=== PATIENT | female | born 1995 | race Caucasian/White ===

== ENCOUNTER 2021-05-12 22:36 | Emergency (ER) | payer SELFPAY ==
--- NOTE | 2021-05-12 23:55 | EDM.PDOC ---
ED HPI GENERAL MEDICAL PROBLEM - General Chief Complaint: General Stated Complaint: POSSIBLE LIVER PROBLEM FROM ALCOHOL Time Seen by Provider: 05/12/21 23:28 Source of Information: Reports: Patient History Limitations: Reports: No Limitations - History of Present Illness INITIAL COMMENTS - FREE TEXT/NARRATIVE: Patient is a 26-year-old female who presents today for evaluation of her liver. Patient that she is drinking a lot this weekend and has a slight pain in the right upper quadrant and she dragon is ID about it and want to come get it checked out. She denies any nausea vomiting diarrhea. States still eating drinking is normal. Pain is not made worse with eating. Patient has no other complaints. - Related Data Allergies Allergy/AdvReac Type Severity Reaction Status Date / Time Sulfa (Sulfonamide Allergy Other Verified 05/12/21 23:50 Antibiotics) Home Meds: Home Meds . 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 - Past Surgical History Other GI Surgeries/Procedures: hiatal hernia Social & Family History - Tobacco Use Tobacco Use Status *Q: Never Tobacco User - Recreational Drug Use Recreational Drug Use: No ED ROS GENERAL - Review of Systems Review Of Systems: See Below Constitutional: Reports: No Symptoms HEENT: Reports: No Symptoms Respiratory: Reports: No Symptoms Cardiovascular: Reports: No Symptoms Endocrine: Reports: No Symptoms GI/Abdominal: Reports: No Symptoms : Reports: No Symptoms Musculoskeletal: Reports: No Symptoms Skin: Reports: No Symptoms Neurological: Reports: No Symptoms Psychiatric: Reports: No Symptoms Hematologic/Lymphatic: Reports: No Symptoms Immunologic: Reports: No Symptoms ED EXAM, GENERAL - Physical Exam Exam: See Below Exam Limited By: No Limitations General Appearance: Alert, WD/WN, No Apparent Distress Eye Exam: Bilateral Eye: EOMI, PERRL Head: Atraumatic Respiratory/Chest: No Respiratory Distress, Lungs Clear, Normal Breath Sounds Cardiovascular: Normal Peripheral Pulses, Regular Rate, Rhythm GI/Abdominal: Normal Bowel Sounds, Soft, Non-Tender Extremities: Normal Inspection, Normal Range of Motion Neurological: Alert, Oriented, CN II-XII Intact, Normal Cognition, Normal Gait Course - Vital Signs Last Recorded V/S: Last Vital Signs Temp 97.4 F 05/12/21 23:48 Pulse 88 05/12/21 23:48 Resp 20 05/12/21 23:48 BP 103/81 08/09/21 23:48 Pulse Ox 95 05/12/21 23:48 - Orders/Labs/Meds Labs: Laboratory Tests 05/13/21 05/13/21 05/13/21 Range/Units 00:16 00:16 00:16 WBC 8.98 (4.0-11.0) K/uL RBC 3.90 L (4.30-5.90) M/uL Hgb 12.1 (12.0-16.0) g/dL Hct 36.7 (36.0-46.0) % MCV 94.1 (80.0-98.0) fL MCH 31.0 (27.0-32.0) pg MCHC 33.0 (31.0-37.0) g/dL RDW Std Deviation 46.1 (28.0-62.0) fl RDW Coeff of Leida 14 (11.0-15.0) % Plt Count 382 (150-400) K/uL MPV 8.60 (7.40-12.00) fL Neut % (Auto) 68.7 (48.0-80.0) % Lymph % (Auto) 20.2 (16.0-40.0) % [place] % (Auto) 9.8 (0.0-15.0) % Eos % (Auto) 1.0 (0.0-7.0) % Baso % (Auto) 0.3 (0.0-1.5) % Neut # (Auto) 6.2 H (1.4-5.7) K/uL Lymph # (Auto) 1.8 (0.6-2.4) K/uL [facility] # (Auto) 0.9 H (0.0-0.8) K/uL Eos # (Auto) 0.1 (0.0-0.7) K/uL Baso # (Auto) 0.0 (0.0-0.1) K/uL Sodium 139 (136-145) mmol/L Potassium 3.6 (3.5-5.1) mmol/L Chloride 101 (98-107) mmol/L Carbon Dioxide 24.8 (21.0-32.0) mmol/L BUN 9 (7.0-18.0) mg/dL Creatinine 0.9 (0.6-1.0) mg/dL Est Cr Clr Drug Dosing 71.48 mL/min Estimated GFR (MDRD) > 60.0 ml/min Glucose 86 (74-106) mg/dL Calcium 9.1 (8.5-10.1) mg/dL Total Bilirubin 0.3 (0.2-1.0) mg/dL AST 26 (15-37) IU/L ALT 25 (14-63) IU/L Alkaline Phosphatase 54 (46-116) U/L Total Protein 7.6 (6.4-8.2) g/dL Albumin 4.3 (3.4-5.0) g/dL Globulin 3.3 (2.6-4.0) g/dL Albumin/Globulin Ratio 1.3 (0.9-1.6) Lipase 88 (73-393) U/L HCG, Qual NEGATIVE (NEG) - Re-Assessments/Exams Free Text/Narrative Re-Assessment/Exam: 05/13/21 00:52 LFTs are within normal range patient be discharged home. Departure - Departure Time of Disposition: 00:52 Disposition: Home, Self-Care 01 Condition: Good Clinical Impression: General medical examination - Discharge Information *PRESCRIPTION DRUG MONITORING PROGRAM REVIEWED*: Not Applicable *COPY OF PRESCRIPTION DRUG MONITORING REPORT IN PATIENT LUMA: Not Applicable Instructions: Medical Screening Exam Referrals: PCP,None [Primary Care Provider] - Forms: ED Department Discharge Additional Instructions: The following information is given to patients seen in the emergency department who are being discharged to home. This information is to outline your options for follow-up care. We provide all patients seen in our emergency department with a follow-up referral. The need for follow-up, as well as the timing and circumstances, are variable d epending upon the specifics of your emergency department visit. If you don't have a primary care physician on staff, we will provide you with a referral. We always advise you to contact your personal physician following an emergency department visit to inform them of the circumstance of the visit and for follow-up with them and/or the need for any referrals to a consulting specialist. The emergency department will also refer you to a specialist when appropriate. This referral assures that you have the opportunity for follow-up care with a specialist. All of these measure are taken in an effort to provide you with optimal care, which includes your follow-up. Under all circumstances we always encourage you to contact your private physician who remains a resource for coordinating your care. When calling for follow-up care, please make the office aware that this follow-up is from your recent emergency room visit. If for any reason you are refused follow-up, please contact the [facility] Emergency Department at and asked to speak to the emergency department charge nurse. Please follow up with your primary care physician. If you do not have a primary care physician, see below: [facility] [address] [place] [id number] [facility] [address] [place] [address] You were seen today because he wanted to be evaluated for your liver. Your liver enzymes within normal range. Recommend follow-up to primary care physician if you have any other concerning signs or symptoms. Sepsis Event Note (ED) - Evaluation Sepsis Screening Result: No Definite Risk - Focused Exam Vital Signs: Vital Signs Temp Pulse Resp BP Pulse Ox 05/12/21 23:48 97.4 F 88 20 103/81 95 - Assessment/Plan Plan: Patient is a 26-year-old female presents today for evaluation of her liver. Patient states she drank a lot of alcohol this weekend. Patient exam looks well does not have any jaundice no pain on exam. Will obtain basic labs and reassess.
[2021-05-13 00:44] LABS: BLOOD UREA NITROGEN,BUN 9 mg/dL (7.0-18.0); CARBON DIOXIDE,CO2 24.8 mmol/L (21.0-32.0); CHLORIDE,CL 101 mmol/L (98-107); GLUCOSE RANDOM 86 mg/dL (74-106); LIPASE 88 U/L (73-393); POTASSIUM,K 3.6 mmol/L (3.5-5.1); SODIUM,NA 139 mmol/L (136-145)
== END 2021-05-13 01:01 | disposition home or self-care (01) ==
LOC: MW.ED 22:36
DX: Z00.8 Encounter for other general examination (principal); Z88.2 Allergy status to sulfonamides
CPT/HCPCS: 36415; 80053; 83690; 84703; 85025; 99284

== ENCOUNTER 2021-05-14 08:47 | Emergency (ER) | payer SELFPAY ==
[2021-05-14] MEDS ORDERED: Ketorolac 15 MG/ML SDV IVPUSH ONE (09:45)
[2021-05-14] MEDS ORDERED: Sodium Chloride 0.9% 10 ML Syringe FLUSH PRN (09:45)
[2021-05-14] MEDS ORDERED: Ondansetron 4 MG/2 ML SDV IVPUSH ONE (09:45)
[2021-05-14] MEDS ORDERED: Sodium Chloride 0.9% 2.5 ML Syringe FLUSH PRN (09:45)
[2021-05-14] MEDS ORDERED: Sodium Chloride 0.9% 1,000 ML IV ONE (09:45)
[2021-05-14 10:55] LABS: BLOOD UREA NITROGEN,BUN 11 mg/dL (7.0-18.0); CARBON DIOXIDE,CO2 24.4 mmol/L (21.0-32.0); CHLORIDE,CL 99 mmol/L (98-107); GLUCOSE RANDOM 77 mg/dL (74-106); POTASSIUM,K 4.2 mmol/L (3.5-5.1); SODIUM,NA 136 mmol/L (136-145)
--- NOTE | 2021-05-14 11:59 | EDM.PDOC ---
ED HPI GENERAL MEDICAL PROBLEM - General Chief Complaint: Abdominal Pain Stated Complaint: MIDDLE BACK PAIN Time Seen by Provider: 05/14/21 09:57 - History of Present Illness INITIAL COMMENTS - FREE TEXT/NARRATIVE: HISTORY AND PHYSICAL: History of present illness: This is a 26-year-old female with a history significant for alcohol use disorder who presents to the ER today for reevaluation of generalized malaise, weakness, fatigue and feeling dehydrated. Patient reports that she was having some pain to her lower back and was concerned that she might have some kidney problems. Patient was seen and evaluated in the ER here 2 days ago after a 4-day alcohol binge resulting in dehydration and concerns about her liver. Patient's ER work- up 2 days ago was unremarkable with normal LFTs normal electrolytes. Patient reports that they did not he do a urinalysis on her and she was concerned about her kidney so came to the ER for further evaluation because the back pain as well. Patient denies any recent fevers, shakes, chills, nausea, vomiting, diarrhea, dysuria, frequency or urgency. Patient reports that she had an IUD recently placed is been having vaginal bleeding since. Patient denies any chest pain or shortness of breath. Patient reports that she is a alcoholic and reports that she was a daily drinker up until December when she moved back to [place]. Patient reports that since moving back to [place] she has cut back her alcohol significantly and was abstinent for December until March. Patient reports that in March she started picking up alcohol once again drinking approximately once every 10 days however she reports that approximately 7 days ago secondary to stressors in her life she started drinking heavily daily for approximately 4 days in a row. Review of systems: As per history of present illness and below otherwise all systems reviewed and negative. Past medical history: As per history of present illness and as reviewed below otherwise noncontributory. Surgical history: As per history of present illness and as reviewed below otherwise noncontributory. Social history: No reported history of drug abuse. Family history: As per history of present illness and as reviewed below otherwise noncontributory. Physical exam: This patient was seen and evaluated during the 2019 SARS-CoV-2 novel coronavirus pandemic period. Community viral transmission is ongoing at time of this encoun ter and the emergency department is operating under pandemic response procedures. Constitutional: Patient is oriented to person, place, and time. Appears well- developed and well-nourished. No distress. HEENT: Moist mucous membranes Head: Normocephalic and atraumatic Eyes: Right eye exhibits no discharge. Left eye exhibits no discharge. No scleral icterus Neck: Normal range of motion. No tracheal deviation present. Cardiovascular: Normal rate and regular rhythm. Pulmonary: Effort normal, no respiratory distress. Abd: Soft, nondistended, no rebound/guarding, no psoas or obturator signs, no tenderness at Mcberney's point, no Cason's sign. Pt does not present with an exam that would be consistent with an acute surgical abdomen at this time. Tenderness palpation bilateral lower flanks. Musculoskeletal: Normal range of motion Neurologic: Alert and oriented to person, place and time. Skin: [place], warm and dry. Psychiatric: Normal mood and affect. Behavior is normal. Judgment and thought content normal. Nursing note and vital signs have been reviewed Diagnostics: [] Therapeutics: Patient required treatment with intravenous normal saline solution secondary to clinical evidence of dehydration as manifested by history and physical examination. Assessment and plan: 26-year-old female who presents ER today secondary to generalized malaise, dehydration and concerns about her kidneys. Patient's work-up in the ED has been unremarkable with normal LFTs and normal renal function. Patient's urinalysis was unremarkable except for a significant mount of blood which appears to be contaminant as patient reports that she is having vaginal bleeding from her IUD was recently placed. Patient has no bacteria and no white cells in her urine and her presentation does not appear to be consistent with renal colic. Patient reports that her urine has been clear and that the bleeding started only after her vaginal bleeding. Patient was given NSS, Toradol, Zofran and feels much improved. Patient stable for discharge home with close outpatient work-up by her primary care physician. Patient reports that she does have support system and utilizes the Internet for online alcohol addiction services. Reassessment at the time of disposition demonstrates that the patient is in no acute distress. The patient has remained stable throughout the entire ED visit and is without objective evidence for acute process requiring urgent intervention or hospitalization. The patient is stable for discharge, counseling is provided as documented above, discussed symptomatic treatment and specific conditions for return. I have spoken with the patient/caregiver and discussed todays findings, in addition to providing specific details for the plan of care. Questions are answ ered and there is agreement with the plan. Definitive disposition and diagnosis as appropriate pending reevaluation and review of above. 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 Musculoskeletal History: Reports: None Neurological History: Reports: None Psychiatric History: Reports: Anxiety Endocrine/Metabolic History: Reports: None Hematologic History: Reports: None Immunologic History: Reports: None Oncologic (Cancer) History: Reports: None Dermatologic History: Reports: None - Infectious Disease History Infectious Disease History: Reports: Chicken Pox - Past Surgical History Head Surgeries/Procedures: Reports: None HEENT Surgical History: Reports: Oral Surgery Cardiovascular Surgical History: Reports: None Respiratory Surgical History: Reports: None GI Surgical History: Reports: Other (See Below) Other GI Surgeries/Procedures: hiatal hernia Female Surgical History: Reports: Section Endocrine Surgical History: Reports: None Neurological Surgical History: Reports: None Musculoskeletal Surgical History: Reports: None Oncologic Surgical History: Reports: None Dermatological Surgical History: Reports: None Social & Family History - Family History Family Medical History: No Pertinent Family History - Tobacco Use Tobacco Use Status *Q: Never Tobacco User Second Hand Smoke Exposure: No - Caffeine Use Caffeine Use: Reports: None - Recreational Drug Use Recreational Drug Use: No ED ROS GENERAL - Review of Systems Review Of Systems: See Below ED EXAM, GENERAL - Physical Exam Exam: See Below Course - Vital Signs Last Recorded V/S: Last Vital Signs Temp 98.1 F 05/14/21 09:09 Pulse 100 05/14/21 09:09 Resp 18 05/14/21 09:09 BP 116/79 05/14/21 09:09 Pulse Ox 98 05/14/21 09:09 - Orders/Labs/Meds Orders: Active Orders 24 hr Category Date Time Status Sodium Chloride 0.9% [Saline Flush] Med 05/14/21 09:45 Active 10 ml FLUSH ASDIRECTED PRN Sodium Chloride 0.9% [Saline Flush] Med 05/14/21 09:45 Active 2.5 ml FLUSH ASDIRECTED PRN Saline Lock Insert [OM.PC] Stat Oth 05/14/21 09:45 Ordered Medication Orders Sodium Chloride (Sodium Chloride 0.9% 10 Ml Syringe) 10 ml FLUSH ASDIRECTED PRN PRN Reason: Keep Vein Open Last Admin: 05/14/21 10:11 Dose: 10 ml Documented by: KAYLENE Sodium Chloride (Sodium Chloride 0.9% 2.5 Ml Syringe) 2.5 ml FLUSH ASDIRECTED PRN PRN Reason: Keep Vein Open Last Admin: 05/14/21 10:11 Dose: 2.5 ml Documented by: KAYLENE Labs: Laboratory Tests 05/14/21 05/14/21 05/14/21 Range/Units 10:15 10:18 10:18 WBC 4.50 (4.0-11.0) K/uL RBC 3.98 L (4.30-5.90) M/uL Hgb 12.4 (12.0-16.0) g/dL Hct 37.4 (36.0-46.0) % MCV 94.0 (80.0-98.0) fL MCH 31.2 (27.0-32.0) pg MCHC 33.2 (31.0-37.0) g/dL RDW Std Deviation 48.3 (28.0-62.0) fl RDW Coeff of Leida 14 (11.0-15.0) % Plt Count 316 (150-400) K/uL MPV 9.40 (7.40-12.00) fL Neut % (Auto) 73.7 (48.0-80.0) % Lymph % (Auto) 9.8 L (16.0-40.0) % [place] % (Auto) 13.8 (0.0-15.0) % Eos % (Auto) 2.0 (0.0-7.0) % Baso % (Auto) 0.7 (0.0-1.5) % Neut # (Auto) 3.3 (1.4-5.7) K/uL Lymph # (Auto) 0.4 L (0.6-2.4) K/uL [place] # (Auto) 0.6 (0.0-0.8) K/uL Eos # (Auto) 0.1 (0.0-0.7) K/uL Baso # (Auto) 0.0 (0.0-0.1) K/uL Nucleated RBC % 0.0 /100WBC Nucleated RBCs # 0 K/uL Sodium 136 (136-145) mmol/L Potassium 4.2 (3.5-5.1) mmol/L Chloride 99 (98-107) mmol/L Carbon Dioxide 24.4 (21.0-32.0) mmol/L BUN 11 (7.0-18.0) mg/dL Creatinine 0.8 (0.6-1.0) mg/dL Est Cr Clr Drug Dosing 80.41 mL/min Estimated GFR (MDRD) > 60.0 ml/min Glucose 77 (74-106) mg/dL Calcium 8.8 (8.5-10.1) mg/dL Total Bilirubin 0.4 (0.2-1.0) mg/dL AST 23 (15-37) IU/L ALT 22 (14-63) IU/L Alkaline Phosphatase 47 (46-116) U/L Total Protein 7.6 (6.4-8.2) g/dL Albumin 4.3 (3.4-5.0) g/dL Globulin 3.3 (2.6-4.0) g/dL Albumin/Globulin Ratio 1.3 (0.9-1.6) Urine Color RED Urine Appearance CLOUDY Urine pH 7.5 (5.0-8.0) Ur Specific [place] 1.020 (1.001-1.035) Urine Protein 100 H (NEGATIVE) mg/dL Urine Glucose (UA) NEGATIVE (NEGATIVE) mg/dL Urine Ketones >=80 (NEGATIVE) mg/dL Urine Occult Blood LARGE H (NEGATIVE) Urine Nitrite POSITIVE H (NEGATIVE) Urine Bilirubin MODERATE H (NEGATIVE) Urine Urobilinogen 1.0 (<2.0) EU/dL Ur Leukocyte Esterase SMALL H (NEGATIVE) Urine RBC TOO NUMEROUS TO CT H (0-2/HPF) Urine WBC 0-2 (0-5/HPF) Ur Epithelial Cells FEW (NONE-FEW) Urine Bacteria FEW (NEGATIVE) Urine Mucus LIGHT (NONE-MOD) Urinalysis Comment Meds: Medications Generic Name Dose Route Start Last Admin Trade Name Dio PRN Reason Stop Dose Admin Sodium Chloride 10 ml 05/14/21 09:45 05/14/21 10:11 Sodium Chloride 0.9% 10 Ml Syringe FLUSH 10 ml ASDIRECTED PRN Administration Keep Vein Open Sodium Chloride 2.5 ml 05/14/21 09:45 05/14/21 10:11 Sodium Chloride 0.9% 2.5 Ml Syringe FLUSH 2.5 ml ASDIRECTED PRN Administration Keep Vein Open Discontinued Medications Generic Name Dose Route Start Last Admin Trade Name Dio PRN Reason Stop Dose Admin Sodium Chloride 1,000 mls @ 999 mls/hr 05/14/21 09:45 05/14/21 10:11 Normal Saline IV 05/14/21 10:45 999 mls/hr .Bolus ONE Administration Ketorolac Tromethamine 15 mg 05/14/21 09:45 05/14/21 10:11 Ketorolac 15 Mg/Ml Sdv IVPUSH 05/14/21 09:46 15 mg ONETIME ONE Administration Ondansetron HCl 4 mg 05/14/21 09:45 05/14/21 10:11 Ondansetron 4 Mg/2 Ml Sdv IVPUSH 05/14/21 09:46 4 mg ONETIME ONE Administration Departure - Departure Time of Disposition: 11:57 Disposition: Home, Self-Care 01 Condition: Good Clinical Impression: Back pain, Alcohol use disorder, Dehydration - Discharge Information Instructions: Dehydration, Adult, [id number], Acute Back Pain, Adult, Alcohol Use Disorder Referrals: PCP,None [Primary Care Provider] - Additional Instructions: Your seen and evaluated in the ER today secondary to concerns with your kidney health. Your blood tests are all normal with normal liver function, as well as renal function. Your urinalysis was normal other than the blood which was likely contaminant from your vaginal bleeding. Please continue to abstain from alcohol as you have been doing. Please continue with your outpatient support systems that you have been utilizing for your alcohol use disorder. Please return to the ER if you have any new or concerning complaints. The following information is given to patients seen in the emergency department who are being discharged to home. This information is to outline your options for follow-up care. We provide all patients seen in our emergency department with a follow-up referral. The need for follow-up, as well as the timing and circumstances, are variable depending upon the specifics of your emergency department visit. If you don't have a primary care physician on staff, we will provide you with a referral. We always advise you to contact your personal physician following an emergency department visit to inform them of the circumstance of the visit and for follow-up with them and/or the need for any referrals to a consulting specialist. The emergency department will also refer you to a specialist when appropriate. This referral assures that you have the opportunity for follow-up care with a specialist. All of these measure are taken in an effort to provide you with optimal care, which includes your follow-up. Under all circumstances we always encourage you to contact your private physician who remains a resource for coordinating your care. When calling for follow-up care, please make the office aware that this follow-up is from your recent emergency room visit. If for any reason you are refused follow-up, please contact the [facility] Emergency Department at and asked to speak to the emergency department charge nurse. [facility] [address] [place] [address] [place] [address] Sepsis Event Note (ED) - Focused Exam Vital Signs: Vital Signs Temp Pulse Resp BP Pulse Ox 05/14/21 09:09 98.1 F 100 18 116/79 98 - My Orders Last 24 Hours: My Active Orders 05/14/21 09:45 Sodium Chloride 0.9% [Saline Flush] 10 ml FLUSH ASDIRECTED PRN Sodium Chloride 0.9% [Saline Flush] 2.5 ml FLUSH ASDIRECTED PRN Saline Lock Insert [OM.PC] Stat - Assessment/Plan Last 24 Hours: My Active Orders 05/14/21 09:45 Sodium Chloride 0.9% [Saline Flush] 10 ml FLUSH ASDIRECTED PRN Sodium Chloride 0.9% [Saline Flush] 2.5 ml FLUSH ASDIRECTED PRN Saline Lock Insert [OM.PC] Stat
== END 2021-05-14 12:17 | disposition home or self-care (01) ==
LOC: MW.ED 08:47
DX: M54.9 Dorsalgia, unspecified (principal); E86.0 Dehydration; Z88.2 Allergy status to sulfonamides; Z72.89 Other problems related to lifestyle
CPT/HCPCS: 36415; 80053; 81001; 85025; 96374; 96375; 99284; J1885; J2405; J7030